=== PATIENT | female | born 1945 | race Caucasian/White ===

== ENCOUNTER 2024-12-05 17:03 | Inpatient (IN) | payer OTHER ==
[2024-12-05] MEDS ORDERED: ACETAMINOPHEN INJECTION 100 ML ONE (18:26)
[2024-12-05] MEDS: ACETAMINOPHEN 1000 MG/100 ML BAG IVPB ONE (18:48)
[2024-12-05 19:00] LABS: HEMATOCRIT 24.7 % (34.1-44.9); HEMOGLOBIN 7.7 g/dL (11.2-15.7); MCHC 31.2 g/dl (32.2-35.5); MEAN CELL VOLUME 100.8 fl (79.4-94.8); MEAN PLT VOLUME 9.2 fl (9.4-12.3); PLATELET COUNT 253 x10^3/uL (182-369); RDW 14.8 % (12.4-16.6)
[2024-12-05 19:16] LABS: INR 1.06 (0.83-1.09); PROTHROMBIN TIME (PATIENT) 11.5 SEC (9.7-13.0)
[2024-12-05 19:18] LABS: ACTIVATED PTT 31.1 SECONDS (25.2-36.5)
[2024-12-05 19:23] LABS: POTASSIUM 4.8 mmol/L (3.5-5.1)
[2024-12-05 19:26] LABS: ALBUMIN 3.1 g/dl (3.4-5.0); BLOOD UREA NITROGEN 60.6 mg/dL (7-18); CALCIUM 9.3 mg/dL (8.5-10.1); MAGNESIUM 2.3 mg/dL (1.8-2.4)
[2024-12-05 19:29] LABS: CREATININE 4.7 mg/dL (0.55-1.3)
[2024-12-05 19:31] LABS: BILIRUBIN,TOTAL 0.4 mg/dL (0.2-1); TOT PROT 6.4 g/dl (6.4-8.2)
[2024-12-05 19:34] LABS: N-TERMINAL BNP 7472.4 pg/ml (5-450)
[2024-12-06 02:06] LABS: EPI CELLS 4 /uL (0-25.1); HYALINE CASTS 0 /uL (0-3.1); PH,URINE 6.5 (5.0-8.0); URINE APPEARANCE CLEAR; URINE BACTERIA 21 /uL (0-1359); URINE BILIRUBIN NEGATIVE (NEGATIVE); URINE COLOR YELLOW; URINE GLUCOSE (UA) NEGATIVE (NEGATIVE); URINE KETONE NEGATIVE (NEGATIVE); URINE LEUK ESTERASE TRACE (NEGATIVE); URINE NITRITE NEGATIVE (NEGATIVE); URINE PROTEIN 1+ (NEGATIVE); URINE RBC 7 /uL (0-23.9); URINE UROBILINOGEN 0.2 mg/dL (0.2-1.0); URINE WBC 28 /uL (0-25.8)
[2024-12-06 02:22] VITALS: BMI 21.3
[2024-12-06] MEDS ORDERED: ACETAMINOPHEN 325 MG TABLET (FP) PO PRN (07:41)
[2024-12-06] MEDS ORDERED: ALBUTEROL SO4 HFA INHALER IH PRN (07:42)
[2024-12-06] MEDS ORDERED: ALBUTEROL SO4 2.5/IPRATROPIUM 0.5 INH SOL 3 ML VIAL.NEB. NEB PRN (07:51)
[2024-12-06] MEDS ORDERED: DOCUSATE SODIUM 100 MG CAPSULE (FP) PO PRN (07:51)
[2024-12-06] MEDS: LEVOTHYROXINE NA 100 MCG TABLET (FP) PO SCH (07:55)
[2024-12-06 08:40] LABS: ABSOLUTE IMMATURE GRANULOCYTES 0.08 x10^3/uL (0.0-0.031); BASOPHILS # 0.02 x10^3/uL (0.01-0.08); EOSINOPHIL % 3.5 % (0.7-5.8); EOSINOPHILS # 0.21 x10^3/uL (0.04-0.36); HEMATOCRIT 22.8 % (34.1-44.9); HEMOGLOBIN 6.9 g/dL (11.2-15.7); MCHC 30.3 g/dl (32.2-35.5); MEAN CELL VOLUME 103.2 fl (79.4-94.8); MEAN PLT VOLUME 9.4 fl (9.4-12.3); MONOCYTE # 0.54 x10^3/uL (0.24-0.86); MONOCYTE % 9.1 % (4.7-12.5); PLATELET COUNT 230 x10^3/uL (182-369); RDW 14.8 % (12.4-16.6)
[2024-12-06 09:10] LABS: POTASSIUM 4.4 mmol/L (3.5-5.1)
[2024-12-06 09:14] LABS: CALCIUM 9.6 mg/dL (8.5-10.1)
[2024-12-06 09:15] LABS: BLOOD UREA NITROGEN 60.8 mg/dL (7-18)
[2024-12-06 09:18] LABS: CREATININE 4.9 mg/dL (0.55-1.3)
[2024-12-06] MEDS: GABAPENTIN 300 MG CAPSULE PO SCH (09:22)
[2024-12-06] MEDS: PANTOPRAZOLE 40 MG TABLET PO SCH (09:22)
[2024-12-06] MEDS: PANTOPRAZOLE SODIUM 40 MG VIAL IVPUSH SCH (09:56)
[2024-12-06] MEDS: FLUTICASONE/UMECLIDIN/VILANTER(100-62.5-25 TRELEGY ELLIPTA) INAHLER IH SCH (09:56)
[2024-12-06] MEDS: CALCIUM ACETATE 667 MG CAPSULE (FP) PO SCH (11:10)
[2024-12-06 11:14] LABS: Reticulocyte % 1.85 % (0.5-1.7)
[2024-12-06] MEDS ORDERED: MAGNESIUM HYDROX 2400MG/30ML ORAL SUSPENSION 30 ML CUP PO PRN (15:50)
[2024-12-06] MEDS ORDERED: ATENOLOL 25 MG TABLET (FP) PO SCH ×2 (22:00)
[2024-12-07] MEDS: TORSEMIDE 20 MG TABLET (FP) PO SCH (09:04)
[2024-12-07 09:51] LABS: ABSOLUTE IMMATURE GRANULOCYTES 0.02 x10^3/uL (0.0-0.031); BASOPHILS # 0.02 x10^3/uL (0.01-0.08); EOSINOPHIL % 2.9 % (0.7-5.8); EOSINOPHILS # 0.19 x10^3/uL (0.04-0.36); HEMATOCRIT 27.4 % (34.1-44.9); HEMOGLOBIN 8.8 g/dL (11.2-15.7); MCHC 32.1 g/dl (32.2-35.5); MEAN CELL VOLUME 96.1 fl (79.4-94.8); MEAN PLT VOLUME 9.3 fl (9.4-12.3); MONOCYTE # 0.54 x10^3/uL (0.24-0.86); MONOCYTE % 8.3 % (4.7-12.5); PLATELET COUNT 233 x10^3/uL (182-369); RDW 16.8 % (12.4-16.6)
[2024-12-07 10:07] LABS: POTASSIUM 4.2 mmol/L (3.5-5.1)
[2024-12-07 10:08] LABS: CALCIUM 9.8 mg/dL (8.5-10.1)
[2024-12-07 10:09] LABS: BLOOD UREA NITROGEN 58.6 mg/dL (7-18)
[2024-12-07 10:12] LABS: CREATININE 4.7 mg/dL (0.55-1.3)
[2024-12-08 07:35] LABS: POTASSIUM 4.1 mmol/L (3.5-5.1)
[2024-12-08 07:41] LABS: CALCIUM 9.4 mg/dL (8.5-10.1)
[2024-12-08 07:45] LABS: CREATININE 4.9 mg/dL (0.55-1.3)
[2024-12-08 08:01] LABS: ABSOLUTE IMMATURE GRANULOCYTES 0.02 x10^3/uL (0.0-0.031); BASOPHILS # 0.03 x10^3/uL (0.01-0.08); EOSINOPHIL % 3.2 % (0.7-5.8); EOSINOPHILS # 0.21 x10^3/uL (0.04-0.36); HEMATOCRIT 27.6 % (34.1-44.9); HEMOGLOBIN 8.6 g/dL (11.2-15.7); MCHC 31.2 g/dl (32.2-35.5); MEAN CELL VOLUME 97.5 fl (79.4-94.8); MONOCYTE # 0.68 x10^3/uL (0.24-0.86); MONOCYTE % 10.5 % (4.7-12.5); PLATELET COUNT 222 x10^3/uL (182-369); RDW 16.3 % (12.4-16.6)
[2024-12-09 07:11] LABS: HEMATOCRIT 28.6 % (34.1-44.9); HEMOGLOBIN 9.2 g/dL (11.2-15.7); MCHC 32.2 g/dl (32.2-35.5); MEAN CELL VOLUME 95.7 fl (79.4-94.8); MEAN PLT VOLUME 9.3 fl (9.4-12.3); PLATELET COUNT 241 x10^3/uL (182-369); RDW 15.6 % (12.4-16.6)
[2024-12-09 07:41] LABS: POTASSIUM 4.4 mmol/L (3.5-5.1)
[2024-12-09 07:42] LABS: CALCIUM 9.6 mg/dL (8.5-10.1)
[2024-12-09 07:43] LABS: BLOOD UREA NITROGEN 59.8 mg/dL (7-18); MAGNESIUM 2.5 mg/dL (1.8-2.4)
[2024-12-09 07:46] LABS: CREATININE 4.9 mg/dL (0.55-1.3)
[2024-12-09] MEDS: hydrALAZINE HCL 20 MG/ML VIAL IVPUSH ONE (11:56)
[2024-12-09] MEDS ORDERED: hydrALAZINE HCL 25 MG TABLET (FP) PO SCH (14:00)
[2024-12-09] MEDS: hydrALAZINE HCL 25 MG TABLET (FP) PO SCH (21:23)
[2024-12-10 15:26] VITALS: BP 128/79; PULSE 69; RESP 19; TEMP 98.2
== END 2024-12-10 15:07 | disposition home or self-care (01) | DRG 812 ==
LOC: JER 17:03 → JERBED 19:34 → J4W 12-06 01:28 → OBSVTOIN 12-06 12:35
PROVIDERS: ADMIT Internal Medicine; ATTEND Student in an Organized Health Care Education/Training Program
PROC: 30233N1 Transfusion of Nonautologous Red Blood Cells into Peripheral Vein, Percutaneous Approach (ICD-10-PCS; principal; 2024-12-06)
DX: D64.9 Anemia, unspecified (principal); I13.0 Hypertensive heart and chronic kidney disease with heart failure and stage 1 through stage 4 chronic kidney disease, or unspecified chronic kidney disease; N17.9 Acute kidney failure, unspecified; I50.32 Chronic diastolic (congestive) heart failure; J44.9 Chronic obstructive pulmonary disease, unspecified; K21.9 Gastro-esophageal reflux disease without esophagitis; E78.5 Hyperlipidemia, unspecified; E03.9 Hypothyroidism, unspecified; N18.9 Chronic kidney disease, unspecified; K57.90 Diverticulosis of intestine, part unspecified, without perforation or abscess without bleeding; I71.43 Infrarenal abdominal aortic aneurysm, without rupture
CPT/HCPCS: 0241U-QW; 36415; 36430; 71045-TC-FY; 71250-TC; 74176-TC; 76775-TC; 80048; 80053; 81003; 82607; 82728; 82746; 83540; 83550; 83690; 83735; 83880; 84484; 85025; 85027; 85610; 85730; 86850; 86900; 86901; 86922; 87086; 93005; 93010; 93306-TC; 93971-TC; 97116-GP; 97162-GP; 99285-25; G0378; J0131; P9058

== ENCOUNTER 2025-01-27 21:37 | Inpatient (IN) | payer OTHER ==
[2025-01-27] MEDS ORDERED: ACETAMINOPHEN INJECTION 100 ML ONE (22:52)
[2025-01-27] MEDS ORDERED: FAMOTIDINE 20 MG/50 ML IVPB 20 MG/50 ML MG IVPB ONE (22:52)
[2025-01-27 23:19] LABS: ABSOLUTE IMMATURE GRANULOCYTES 0.02 x10^3/uL (0.0-0.031); BASOPHILS # 0.03 x10^3/uL (0.01-0.08); EOSINOPHIL % 1.8 % (0.7-5.8); EOSINOPHILS # 0.14 x10^3/uL (0.04-0.36); HEMATOCRIT 28.5 % (34.1-44.9); MCHC 31.6 g/dl (32.2-35.5); MEAN PLT VOLUME 8.8 fl (9.4-12.3); MONOCYTE # 0.69 x10^3/uL (0.24-0.86); PLATELET COUNT 259 x10^3/uL (182-369); RDW 12.6 % (12.4-16.6)
[2025-01-27 23:26] LABS: INR 0.99 (0.83-1.09); PROTHROMBIN TIME (PATIENT) 10.8 SEC (9.7-13.0)
[2025-01-27 23:29] LABS: ACTIVATED PTT 31.3 SECONDS (25.2-36.5)
[2025-01-27 23:39] LABS: POTASSIUM 4.4 mmol/L (3.5-5.1)
[2025-01-27 23:41] LABS: CALCIUM 10.5 mg/dL (8.5-10.1)
[2025-01-27 23:42] LABS: ALBUMIN 3.2 g/dl (3.4-5.0); BLOOD UREA NITROGEN 65.3 mg/dL (7-18)
[2025-01-27 23:45] LABS: CREATININE 4.6 mg/dL (0.55-1.3)
[2025-01-27 23:46] LABS: BILIRUBIN,TOTAL 0.3 mg/dL (0.2-1); TOT PROT 6.9 g/dl (6.4-8.2)
[2025-01-28] MEDS: FAMOTIDINE 20 MG/50 ML IVPB 20 MG/50 ML MG IVPB ONE (01:17)
[2025-01-28] MEDS: ACETAMINOPHEN 1000 MG/100 ML BAG IVPB ONE (01:17)
[2025-01-28 03:38] LABS: EPI CELLS 5 /uL (0-25.1); HYALINE CASTS 0 /uL (0-3.1); PH,URINE 8.5 (5.0-8.0); URINE APPEARANCE CLEAR; URINE BACTERIA 40 /uL (0-1359); URINE BILIRUBIN NEGATIVE (NEGATIVE); URINE COLOR YELLOW; URINE GLUCOSE (UA) NEGATIVE (NEGATIVE); URINE KETONE NEGATIVE (NEGATIVE); URINE LEUK ESTERASE NEGATIVE (NEGATIVE); URINE NITRITE NEGATIVE (NEGATIVE); URINE PROTEIN 1+ (NEGATIVE); URINE RBC 5 /uL (0-23.9); URINE UROBILINOGEN 0.2 mg/dL (0.2-1.0); URINE WBC 5 /uL (0-25.8)
[2025-01-28] MEDS ORDERED: CEFTRIAXONE 1 GM/50 ML BAG ONE (05:40)
[2025-01-28] MEDS ORDERED: AZITHROMYCIN IVPB 500 MG/250 ML BAG IVPB ONE (05:41)
[2025-01-28] MEDS: CEFTRIAXONE 1 GM in DEXTROSE 5%-WATER - 100 ML IVPB ONE (06:20)
[2025-01-28] MEDS: AZITHROMYCIN IVPB 500 MG in DEXTROSE 5%-WATER - 250 ML IVPB ONE (06:34)
[2025-01-28] MEDS ORDERED: NALOXONE HCL 0.4 MG/ML VIAL IVPUSH PRN (09:04)
[2025-01-28] MEDS ORDERED: ACETAMINOPHEN 500 MG TABLET (FP) PO PRN (09:04)
[2025-01-28] MEDS ORDERED: PIPERACILLIN/TAZOB 2.25 GM 2.25 GM/50 ML BAG IVPB ONE (09:55)
[2025-01-28] MEDS ORDERED: HEPARIN NA (PORCINE) 5,000 UNITS/ML 1ML VIAL ONE (09:55)
[2025-01-28] MEDS ORDERED: LIDOCAINE 4% PATCH TP ONE (10:35)
[2025-01-28] MEDS: LIDOCAINE 4% PATCH TP SCH (10:43)
[2025-01-28] MEDS: PIPERACILLIN/TAZOB 2.25 GM 2.25 GM/50 ML BAG IVPB SCH (10:43)
[2025-01-28 18:46] LABS: N-TERMINAL BNP 5108.4 pg/ml (5-450)
[2025-01-28] MEDS: PIPERACILLIN/TAZOB 2.25 GM 2.25 GM in DEXTROSE 5%-WATER - 50 ML IVPB ONE (19:46)
[2025-01-28 20:56] VITALS: BMI 22.1
[2025-01-28] MEDS: GABAPENTIN 100 MG CAPSULE PO SCH (21:46)
[2025-01-28] MEDS: PANTOPRAZOLE 40 MG TABLET PO SCH (21:46)
[2025-01-28] MEDS: LIDOCAINE PATCH REMOVAL MC SCH (21:47)
[2025-01-28] MEDS ORDERED: PATIENT'S OWN MEDICATION (NON-FORMULARY) (Tizanidine Hcl [Tizanidine Hcl] 2 MG Tablet) PO SCH (22:00)
[2025-01-29] MEDS: LEVOTHYROXINE NA 100 MCG TABLET (FP) PO SCH (06:05)
[2025-01-29] MEDS: PIPERACILLIN/TAZOB 2.25 GM 2.25 GM in DEXTROSE 5%-WATER - 50 ML IVPB SCH (07:51)
[2025-01-29 07:56] LABS: HEMATOCRIT 24.9 % (34.1-44.9); HEMOGLOBIN 7.7 g/dL (11.2-15.7); MCHC 30.9 g/dl (32.2-35.5); MEAN CELL VOLUME 98.4 fl (79.4-94.8); MEAN PLT VOLUME 9.2 fl (9.4-12.3); PLATELET COUNT 228 x10^3/uL (182-369); RDW 12.6 % (12.4-16.6)
[2025-01-29 08:13] LABS: POTASSIUM 4.5 mmol/L (3.5-5.1)
[2025-01-29 08:24] LABS: ALBUMIN 2.7 g/dl (3.4-5.0); BLOOD UREA NITROGEN 60.4 mg/dL (7-18); CALCIUM 10.2 mg/dL (8.5-10.1)
[2025-01-29 08:25] LABS: MAGNESIUM 2.5 mg/dL (1.8-2.4)
[2025-01-29 08:27] LABS: CREATININE 4.7 mg/dL (0.55-1.3)
[2025-01-29 08:28] LABS: PHOSPHOROUS 4.6 mg/dL (2.5-4.9)
[2025-01-29 08:29] LABS: BILIRUBIN,TOTAL 0.4 mg/dL (0.2-1); TOT PROT 5.8 g/dl (6.4-8.2)
[2025-01-29] MEDS: HEPARIN NA (PORCINE) 5,000 UNITS/ML 1ML VIAL SQ SCH (09:36)
[2025-01-29] MEDS: NIFEdipine E.R 60 MG TABLET PO SCH (09:43)
[2025-01-29] MEDS ORDERED: LEVOTHYROXINE NA 100 MCG TABLET (FP) PO SCH (10:00)
[2025-01-29] MEDS ORDERED: ATENOLOL 50 MG TABLET (FP) PO SCH ×2 (10:00)
[2025-01-29 11:18] VITALS: RESP 18
[2025-01-29 15:09] VITALS: BP 142/66; PULSE 69; TEMP 98.1
== END 2025-01-29 18:08 | disposition home or self-care (01) | DRG 552 ==
LOC: JER 21:37 → JERBED 01-28 05:38 → OBSVTOIN 01-28 08:54 → J4W 01-28 18:48
PROVIDERS: ADMIT Internal Medicine; ATTEND Internal Medicine
DX: M54.50 Low back pain, unspecified (principal); I13.0 Hypertensive heart and chronic kidney disease with heart failure and stage 1 through stage 4 chronic kidney disease, or unspecified chronic kidney disease; I50.32 Chronic diastolic (congestive) heart failure; J44.9 Chronic obstructive pulmonary disease, unspecified; Z99.81 Dependence on supplemental oxygen; E78.5 Hyperlipidemia, unspecified; K21.9 Gastro-esophageal reflux disease without esophagitis; E03.9 Hypothyroidism, unspecified; F32.A Depression, unspecified; R55 Syncope and collapse; N18.9 Chronic kidney disease, unspecified; R91.8 Other nonspecific abnormal finding of lung field; I44.0 Atrioventricular block, first degree
CPT/HCPCS: 0241U-QW; 36415; 70450-TC; 71045-TC-FY; 72125-TC; 72170-TC-FY; 73030-TC-LT-FY; 80053; 81003; 83605; 83690; 83735; 83880; 84100; 84484; 85025; 85027; 85610; 85730; 86850; 86900; 86901; 87086; 87899; 93005; 93010; 99285-25; G0378